=== PATIENT | female | born 1990 | race Two or more races ===

== ENCOUNTER 2020-04-27 13:00 | Inpatient (IN) | payer OTHER ==
[~2020-04-27] VITALS: Ht 160 cm; Wt 65.8 kg
[2020-05-11] MEDS ORDERED: PRENATAL CAPLE1 EAC1 PO (06:47)
== END 2020-05-13 12:20 | disposition home or self-care (01) | DRG 807 ==
LOC: OB/GYN 05-11 06:07 → LDR 05-11 06:07 → SURH 05-11 13:00 → OB/GYN 05-11 13:12
PROVIDERS: ADMIT Obstetrics & Gynecology; ATTEND Obstetrics & Gynecology
PROC: 10E0XZZ Delivery of Products of Conception, External Approach (ICD-10-PCS; principal; 2020-05-11)
PROC: 4A1HXFZ Monitoring of Products of Conception, Cardiac Rhythm, External Approach (ICD-10-PCS; 2020-05-11)
DX: O80 Encounter for full-term uncomplicated delivery (principal); Z37.0 Single live birth; Z3A.39 39 weeks gestation of pregnancy; Z20.822 Contact with and (suspected) exposure to COVID-19

== ENCOUNTER 2023-09-04 14:40 | Outpatient (CLI) | payer OTHER ==
[~2023-09-04 14:40] MED LIST: PRENATAL CAPLE1 EAC1 PO
== END 2023-09-04 16:02 | disposition home or self-care (01) ==
LOC: NST 14:40
PROVIDERS: ATTEND Obstetrics & Gynecology
DX: Z34.83 Encounter for supervision of other normal pregnancy, third trimester (principal)

== ENCOUNTER 2023-10-24 10:37 | Outpatient (CLI) | payer OTHER | END 2023-10-24 11:28 | disposition home or self-care (01) | LOC: NST 10:37 | PROVIDERS: ATTEND Obstetrics & Gynecology | DX: Z34.83 Encounter for supervision of other normal pregnancy, third trimester (principal) ==

== ENCOUNTER 2023-10-24 12:15 | Inpatient (IN) | payer OTHER ==
[~2023-10-24] VITALS: Ht 160 cm; Wt 66.2 kg
[2023-11-07] VITALS (9 sets, daily range): BP systolic 99–128; BP diastolic 53–92
[2023-11-07] MEDS ORDERED: RINGERS SOLUTION,LACTATED 1,000 ML IV SCH (12:00)
[2023-11-07 13:06] LABS: HEMATOCRIT 35.4 % (36.0-45.00); MEAN CELL VOLUME 83.8 fL (80.00-100.00); MEAN CORPUSCULAR HEMOGLOBIN 28.5 pg (27.00-32.0); PLATELET COUNT 170 K/uL (150-450); RED BLOOD COUNT 4.23 M/uL (4.00-6.00); RED CELL DISTRIBUTION WIDTH 15.1 % (11.5-14.5)
[2023-11-07 13:19] LABS: URINE APPEARANCE Cloudy; URINE BILIRRUBIN Negative (NEGATIVE); URINE BLOOD Negative; URINE COLOR Yellow; URINE GLUCOSE Negative (NEGATIVE); URINE KETONE Negative (NEGATIVE); URINE LEUKOCYTE Moderate; URINE NITRATE Negative; URINE PROTEIN Negative (NEGATIVE); URINE UROBILINOGEN 0.2 E.U./dl
[2023-11-07 13:23] LABS: URINE BACTERIA 822.6 uL (0.0-1933); URINE WBC 12.2 uL (0.0-23.2)
[2023-11-07 13:28] LABS: PARTIAL THROMBOPLASTIN TIME 28.5 SECONDS (22.0-34.0); PROTHROMBIN TIME 10.9 SECONDS (9.0-11.5)
[2023-11-07 13:47] LABS: URINE RBC 0.7 uL (0.0-20.8)
[2023-11-07 14:15] LABS: ALBUMIN 2.8 gm/dL (3.4-5.0); BILIRUBIN TOTAL 0.5 mg/dL (0.3-1.2); CALCIUM 8.6 mg/dL (8.5-10.1); CREATININE SERUM 0.48 mg/dL (0.55-1.02); GFR 148.04; GLOBULINA 3.6 G/DL (2.4-3.5); POTASSIUM 4.03 mEq/L (3.5-5.1); TOTAL PROTEIN 6.4 gm/dL (6.4-8.2)
[2023-11-07] MEDS ORDERED: OXYTOCIN 500 ML IV SCH (15:30)
[2023-11-07] MEDS ORDERED: IBUprofen 400 MG TABLET PO PRN (20:15)
[2023-11-07] MEDS ORDERED: CHLORHEXIDINE GLUCONATE 120 ML BOTTLE TOP SCH (20:15)
[2023-11-07] MEDS ORDERED: OXYTOCIN 1,000 ML IV SCH (20:15)
[2023-11-07] MEDS ORDERED: SENNA/DOCUSATE SODIUM 1 TAB TABLET PO SCH (21:00)
[2023-11-08 01:28] VITALS: BP 102/67
[2023-11-08] MEDS ORDERED: PNV,CALCIUM 72/IRON/FOLIC ACID 1 TAB TABLET PO SCH (09:00)
[2023-11-08 10:18] VITALS: BP 97/64; O2SAT 100
[2023-11-08 14:29] VITALS: BP 113/75; O2SAT 100
[2023-11-08 16:17] VITALS: BP 104/68
[2023-11-09 01:15] VITALS: BP 95/61
[2023-11-09 08:00] VITALS: BP 117/79
== END 2023-11-09 12:10 | disposition home or self-care (01) | DRG 807 ==
LOC: LDR 11-07 11:15 → OB/GYN 11-07 12:13
PROVIDERS: Obstetrics & Gynecology; ADMIT Obstetrics & Gynecology Gynecology; ATTEND Obstetrics & Gynecology Gynecology
PROC: 10E0XZZ Delivery of Products of Conception, External Approach (ICD-10-PCS; principal; 2023-11-07)
PROC: 0HQ9XZZ Repair Perineum Skin, External Approach (ICD-10-PCS; 2023-11-07)
PROC: 4A1HXCZ Monitoring of Products of Conception, Cardiac Rate, External Approach (ICD-10-PCS; 2023-11-07)
DX: O70.1 Second degree perineal laceration during delivery (principal); Z37.0 Single live birth; Z3A.37 37 weeks gestation of pregnancy; Z20.822 Contact with and (suspected) exposure to COVID-19

== ENCOUNTER 2025-01-30 07:05 | Outpatient (CLI) | payer OTHER | END 2025-01-30 07:06 | disposition home or self-care (01) | LOC: NUCLEAR 07:05 | PROVIDERS: ATTEND Internal Medicine Rheumatology | DX: M25.50 Pain in unspecified joint (principal) ==